=== PATIENT | female | born 1965 | race African-American/Black ===

== ENCOUNTER 2019-08-17 21:31 | Emergency (ER) | payer OTHER ==
[~2019-08-17] VITALS: Ht 167.6 cm; Wt 79.4 kg
[~2019-08-17 21:31] MED LIST: AMLO10TA4 PO
[2019-08-17 22:12] VITALS: BP 129/87
--- NOTE | 2019-08-17 22:13 | NUR ---
PT AAOX4. AMBULATORY WITH STEADY GAIT. BIBSELF C/O HIGH BP. WHEN ASSESSED, BP 129/87, NO CP. VSS. AWAITING MD FOR EVAL. NO SOB EITHER. PLACED ON MONITOR AND PULSE OX. WILL CONTINUE TO MONITOR.
== END 2019-08-17 22:32 | disposition home or self-care (01) ==
LOC: ER 21:31
DX: I10 Essential (primary) hypertension (principal); F43.9 Reaction to severe stress, unspecified; Z79.899 Other long term (current) drug therapy